=== PATIENT | male | born 1960 | race African-American/Black ===

== ENCOUNTER 2022-09-29 22:06 | Emergency (ER) | payer OTHER ==
[2022-09-29] MEDS ORDERED: Boostrix 0.5 ML (Tdap) VIAL (>/=7 yrs of age) ONE (23:17)
[2022-09-29] MEDS ORDERED: HYDROcodone/Acetaminophen 5/325 mg Tablet ONE (23:17)
[2022-09-30] MEDS ORDERED: Bacitracin 1 PK ONE (00:24)
== END 2022-09-30 00:27 | disposition home or self-care (01) ==
LOC: CSHERS 22:06
DX: S01.81XA Laceration without foreign body of other part of head, initial encounter (principal); Z23 Encounter for immunization; E78.5 Hyperlipidemia, unspecified; I10 Essential (primary) hypertension; W01.0XXA Fall on same level from slipping, tripping and stumbling without subsequent striking against object, initial encounter
CPT/HCPCS: 12011; 70450; 72125; 90471; 90715

== ENCOUNTER 2022-12-25 18:33 | Emergency (ER) | payer OTHER ==
[2022-12-25] MEDS ORDERED: Ketorolac Tromethamine 30 MG/ML VIAL ONE (20:11)
== END 2022-12-25 20:22 | disposition home or self-care (01) ==
LOC: CSHERS 18:33
DX: M79.89 Other specified soft tissue disorders (principal); M79.642 Pain in left hand; E78.5 Hyperlipidemia, unspecified; I10 Essential (primary) hypertension; F17.210 Nicotine dependence, cigarettes, uncomplicated
CPT/HCPCS: 96372; J1885

== ENCOUNTER 2022-12-31 03:18 | Emergency (ER) | payer OTHER ==
[2022-12-31] MEDS ORDERED: Lidocaine 1% w/Epinephrine 1:200K 30 ML VIAL ONE (03:31)
[2022-12-31] MEDS ORDERED: Morphine 4 MG/ML VIAL ONE (03:31)
== END 2022-12-31 05:24 | disposition home or self-care (01) ==
LOC: CSHERS 03:18
DX: S01.81XA Laceration without foreign body of other part of head, initial encounter (principal); I10 Essential (primary) hypertension; E78.5 Hyperlipidemia, unspecified; F17.210 Nicotine dependence, cigarettes, uncomplicated; W01.198A Fall on same level from slipping, tripping and stumbling with subsequent striking against other object, initial encounter
CPT/HCPCS: 12013; 70450; J2270

== ENCOUNTER 2023-01-10 19:07 | Emergency (ER) | payer OTHER | END 2023-01-10 20:50 | LOC: CSHERS 19:07 | DX: S01.81XD Laceration without foreign body of other part of head, subsequent encounter (principal); Z48.02 Encounter for removal of sutures; I10 Essential (primary) hypertension; E78.5 Hyperlipidemia, unspecified; F17.210 Nicotine dependence, cigarettes, uncomplicated ==